=== PATIENT | female | born 1960 | race Caucasian/White ===

== ENCOUNTER 2017-01-31 07:20 | Day surgery (SDC) | payer BC ==
--- NOTE | 2017-01-29 22:35 | PREOPHP ---
DATE OF ADMISSION: 01/31/2017 This patient is coming on Sunday for a hysteroscopy, D and C, and endometrial polypectom y. HISTORY OF PRESENT ILLNESS: The patient, Kayla Hoskins, is a 56-year-old female 1, para 1. This patient had no living children. She had an intrapartum at 8 months of . Has pelvic pain, nonsexually active for years, vaginal dryness with burning sensation. No bladder issues with incontinence of urgency only, constipation, history of prediabetes and hot flashes, pers piration, history of back pain. PAST MEDICAL HISTORY: Unremarkable. ALLERGIES: SHE IS NOT ALLERGIC TO ANY MEDICATIONS. MEDICATIONS: 1. She is on Colace. 2. Vitamin D. 3. Tylenol. 4. Loratadine. FAMILY HISTORY: Brain and pancreatic cancer. PHYSICAL EXAMINATION: VITAL SIGNS: She is 5 feet 5 inches. She weighs 209 pounds. Blood pressure is 150/80. HEAD AND NECK: Normal with a right-sided thyroid enlargement. BREASTS: Soft, nontender. No masses. CHEST: Clear. HEART: Normal sinus rhythm. LUNGS: Clear. BACK: Normal. ABDOMEN: Soft, nontender. No masses. GENITALIA: There is a perianal mass growing, about 5 cm, with the possibility of a polyp that needs to be removed. Uterus with fibroids that are painful. RECTAL: Normal. EXTREMITIES: Normal. PLAN: This patient had a normal Pap smear and she had an ultrasound as well. Laboratory testing re vealed that she is in menopause. Her ultrasound revealed that she had prominent endometrium with en dometrial polyp and possible fibroids as well with simple bilateral ovarian cysts. So she was place d for a D and C hysteroscopy, excision of perianal mass, and polypectomy. She has been advised of t he possible risks and possible complications of the procedure with her alternatives and options. Wr itten information was provided. She had no more questions and agreed to go ahead with the procedure with full understanding and no more questions. Dictated By: FRANCOIS KENNEDY/NTS Conf#: [id number] DID#: [id number]
[2017-01-30 10:31] VITALS: BMI 36.7
[2017-01-31] VITALS (15 sets, daily range): BP systolic 113–132; BP diastolic 64–76; PULSE 62–85; RESP 12–42; Ht 172.7 cm; Wt 96.0 kg
[~2017-01-31] VITALS: Ht 172.7 cm; Wt 96.0 kg
[~2017-01-31 07:20] MED LIST: CONSTIPATION MED; SLEEP MEDICATION; STOMACH MEDICATION; VITAMINS
[2017-01-31] MEDS ORDERED: CEFAZOLIN 2 GM/50 ML (PMX) 50 ML IVPB ONE (07:30)
[2017-01-31] MEDS ORDERED: DOCU100C26 PO (07:57)
[2017-01-31] MEDS ORDERED: PANT40TA3 PO (07:58)
[2017-01-31] MEDS ORDERED: MELO-110 PO (07:58)
[2017-01-31] MEDS ORDERED: LORA10TA3 PO (07:59)
[2017-01-31] MEDS ORDERED: CHOL100062 PO (08:00)
[2017-01-31] MEDS ORDERED: BUSP10TA2 PO (08:00)
--- NOTE | 2017-01-31 09:51 | HPN ---
Date/Time of Note Date/Time of Note DATE: 01/31/17 TIME: 09:51 Interval H&P Admission Note Pt. seen H&P reviewed: No system changes FRANCOIS BUSBY MD January 31, 2017 09:51
[2017-01-31] MEDS ORDERED: FENTAnyl 50 MCG/ML VIAL ONE (10:04)
[2017-01-31] MEDS ORDERED: GLYCOPYRROLATE 0.4 MG INJ ONE (10:25)
[2017-01-31] MEDS ORDERED: PROPOFOL 40 ML ONE (10:25)
[2017-01-31] MEDS ORDERED: CEFAZOLIN 1 GM INJ ONE (10:25)
[2017-01-31] MEDS ORDERED: NEOSTIGMINE 3 MG/3 ML SYRINGE ONE (10:25)
[2017-01-31] MEDS ORDERED: ROCURONIUM 50 MG INJ ONE (10:25)
[2017-01-31] MEDS ORDERED: LIDOCAINE 2% (SDV) 5 ML INJ ONE (10:25)
[2017-01-31] MEDS ORDERED: SUCCINYLCHOLINE CHLORIDE 100 MG/5 ML SYG IV ONE (10:25)
[2017-01-31] MEDS ORDERED: HYDROmorphONE (0.2 MG/ML) 10ML SYG IV PRN ×3 (10:30)
[2017-01-31] MEDS ORDERED: FENTAnyl 50 MCG/ML VIAL IV PRN ×2 (10:30)
[2017-01-31] MEDS ORDERED: DIPHENHYDRAMINE 50 MG INJ IV PRN (10:30)
[2017-01-31] MEDS ORDERED: MEPERIDINE 25 MG INJ IV PRN (10:30)
[2017-01-31] MEDS ORDERED: METOCLOPRAMIDE 10 MG INJ IV PRN (10:30)
[2017-01-31] MEDS ORDERED: ONDANSETRON 4 MG INJ IV PRN (10:30)
[2017-01-31] MEDS ORDERED: PROVENTIL HFA 6.7GM INHALER ONE (10:59)
--- NOTE | 2017-01-31 11:02 | PD.PPDC ---
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
--- NOTE | 2017-01-31 11:08 | OPR ---
Date/Time of Note Date/Time of Note DATE: 01/31/17 TIME: 11:05 Operative Report Procedure Date: January 31, 2017 Preoperative Diagnosis PELVIC PAIN ENDOMETRIAL MASS, FIBROID VERSUS POLYP PREDIABETES PERIANAL MASS Postoperative Diagnosis SAME Operation Performed D&C HYSTEROSCOPIC PARTIAL ENDOMETRIAL MASS RESECTION Surgeon: FRANCOIS BUSBY MD Anesthesia: general Anesthesiologist: NAYA FLYNN Estimated Blood Loss: none Complications: None Disposition: PACU FRANCOIS BUSBY MD January 31, 2017 11:08
[2017-01-31] MEDS ORDERED: KETOROLAC 30 MG INJ IV PRN (11:30)
--- NOTE | 2017-01-31 12:38 | OPR ---
DATE OF OPERATION: 01/31/2017 PROCEDURE: D and C, hysteroscopic partial resection of endometrial mass. PREOPERATIVE DIAGNOSES: 1. Pelvic pain, endometrial mass, fibroids versus polyps. 2. Diabetes, perianal mass. POSTOPERATIVE DIAGNOSIS: 1. Pelvic pain, endometrial mass, fibroids versus polyps. 2. Diabetes, perianal mass. SURGEON: Francois Cali MD ANESTHESIA: General. DESCRIPTION OF PROCEDURE: Patient was given general anesthesia, placed in the lithotomy position. The perineal and vaginal area were prepped and draped, and confirmatory examination under anesthesia revealed that there was a perianal mass about 4 cm hanging next to the anus left side. Externally there is vaginal prolapse from the bladder to grade II to III, rectum II to III, and cervix nonprola psed with a fibroid uterus that is retroverted and about 8 weeks' size, mobile. The adnexa were non palpable. The vaginal speculum was applied. The cervix was held distally. The endocervical curett age was done for pathology. The uterus was sounded to a depth of 3 inches and the scope was placed in after dilatation of the cervix to a #7 to #8. The hysteroscope and water media was inserted insi de the uterus and the visualization of the cavity revealed that there were 2 large masses that were in the endometrium, possibly fibroids more like polyps, a little hard consistency, with a posterior fibroid that was also protruding up the endometrium. The trochlear machine was used and the resecti on was done partially of this mass which was hard and tissue of this mass was obtained. The decisio n was to go ahead with a vaginal hysterectomy since it was very hard tissue to resect. The patient did not have any bleeding. The procedure was finished by removing all the instruments and the patie nt tolerated the procedure well and intravenous antibiotics were given for prophylaxis. Blood loss was minimal. The urine was clear. Dictated By: FRANCOIS KENNEDY/STACIE Conf#: [id number] DID#: [id number]
[2017-01-31] MEDS ORDERED: ONDANSETRON 4 MG INJ IV STA (13:12)
[2017-01-31] MEDS ORDERED: HYDROmorphONE 1 MG/ML SYG IV STA (13:12)
--- NOTE | 2017-01-31 13:25 | RADRPT ---
Vent Rate: 93 bpm RR Interval: 0 msec [place] Interval: 152 msec QRS Duration: 78 msec QT Interval: 376 msec QTC Interval: 467 msec P-R-T [place]: 48 - 54 - 32 degrees Sinus rhythm with occasional premature ventricular complexes Otherwise normal ECG Electronically Signed By: Drew Cohn [id number]
== END 2017-01-31 14:34 | disposition home or self-care (01) ==
LOC: SDS 07:20
PROVIDERS: ATTEND Obstetrics & Gynecology
DX: N85.00 Endometrial hyperplasia, unspecified (principal); N84.0 Polyp of corpus uteri; I10 Essential (primary) hypertension; E66.9 Obesity, unspecified; Z68.32 Body mass index [BMI] 32.0-32.9, adult
CPT/HCPCS: 58563; 88305; 93005; J0690; J1170; J1885; J2175; J2405; J2710; J3010; J7999; Z7512; Z7610

== ENCOUNTER 2017-06-15 05:44 | Day surgery (SDC) | payer BC ==
[2017-06-14 15:00] VITALS: Ht 165.1 cm; Wt 97.2 kg
[~2017-06-15] VITALS: Ht 165.1 cm; Wt 97.2 kg
[~2017-06-15 05:44] MED LIST changes: +BUSP10TA2 PO; +CHOL100062 PO; -CONSTIPATION MED; +DOCU100C26 PO; +LORA10TA3 PO; +MELO-210 PO; +PANT40TA3 PO; -SLEEP MEDICATION; -STOMACH MEDICATION; -VITAMINS
[2017-06-15] MEDS ORDERED: CEFAZOLIN 2 GM/50 ML (PMX) 50 ML IVPB ONE (06:00)
[2017-06-15] MEDS ORDERED: SOD CHLORIDE 0.9% 1,000 ML IV SCH (06:00)
== END 2017-06-15 06:45 | disposition home or self-care (01) ==
LOC: SDS 05:44
PROVIDERS: ATTEND Surgery
DX: E07.9 Disorder of thyroid, unspecified (principal); Z53.09 Procedure and treatment not carried out because of other contraindication

== ENCOUNTER 2017-06-28 06:32 | Observation (INO) | payer BC ==
[~2017-06-28] VITALS: Ht 167.6 cm; Wt 97.0 kg
[2017-06-28] VITALS (22 sets, daily range): BP systolic 105–146; BP diastolic 61–81; PULSE 70–96; RESP 15–20; Ht 167.6 cm; Wt 97.0 kg
[2017-06-28] MEDS ORDERED: CEFAZOLIN 2 GM/50 ML (PMX) 50 ML IVPB ONE (07:00)
[2017-06-28] MEDS ORDERED: METOPROLOL 5 MG INJ ONE (07:00)
[2017-06-28] MEDS ORDERED: SOD CHLORIDE 0.9% 1,000 ML IV SCH (07:00)
[2017-06-28] MEDS ORDERED: NEOSTIGMINE 3 MG/3 ML SYRINGE ONE (08:20)
[2017-06-28] MEDS ORDERED: GLYCOPYRROLATE 0.4 MG INJ ONE (08:20)
[2017-06-28] MEDS ORDERED: ROCURONIUM 50 MG INJ ONE (08:20)
[2017-06-28] MEDS ORDERED: PROPOFOL 20 ML ONE (08:20)
[2017-06-28] MEDS ORDERED: FENTAnyl 50 MCG/ML VIAL ONE (08:20)
[2017-06-28] MEDS ORDERED: DEXAMETHASONE 4 MG/ML 1 ML INJ ONE (08:20)
[2017-06-28] MEDS ORDERED: MIDAZOLAM 1 MG/ML 2 ML INJ ONE (08:20)
[2017-06-28] MEDS ORDERED: CEFAZOLIN 1 GM INJ ONE (08:20)
[2017-06-28] MEDS ORDERED: ONDANSETRON 4 MG INJ ONE (08:20)
[2017-06-28] MEDS ORDERED: FENTAnyl 50 MCG/ML VIAL IV PRN ×2 (10:00)
[2017-06-28] MEDS ORDERED: OXYCODONE/ACETAMINOPHEN (5/325) TAB PO PRN ×2 (10:00)
[2017-06-28] MEDS ORDERED: TRIMETHOBENZAMIDE 100 MG/ML VIAL IM PRN (10:00)
[2017-06-28] MEDS ORDERED: LABETALOL HCL 20MG INJ IV PRN (10:00)
[2017-06-28] MEDS ORDERED: ONDANSETRON 4 MG INJ IV PRN (10:00)
[2017-06-28] MEDS ORDERED: MEPERIDINE 25 MG INJ IV PRN (10:00)
[2017-06-28] MEDS ORDERED: MIDAZOLAM 1 MG/ML 2 ML INJ IV PRN (10:00)
[2017-06-28] MEDS ORDERED: ALBUTEROL 0.083% (NEB) 2.5 MG/3 ML AMP HHN PRN (10:00)
[2017-06-28] MEDS ORDERED: hydrALAzine 20 MG INJ IV PRN (10:00)
[2017-06-28] MEDS ORDERED: IPRATROPIUM (NEB) 0.5 MG/2.5 ML AMP HHN PRN (10:00)
[2017-06-28] MEDS ORDERED: HYDROmorphONE (0.2 MG/ML) 10ML SYG IV PRN ×3 (10:00)
[2017-06-28] MEDS ORDERED: EPHEDrine SULFATE 50 MG/5 ML SYG IV PRN (10:00)
[2017-06-28] MEDS ORDERED: DIPHENHYDRAMINE 50 MG INJ IV PRN (10:00)
[2017-06-28] MEDS ORDERED: BUPIVACAINE 0.25% (MPF) 30 ML INJ ONE (10:30)
[2017-06-28] MEDS ORDERED: SUGAMMADEX SODIUM 200 MG/2 ML VIAL IV ONE (10:35)
[2017-06-28] MEDS ORDERED: BUPIVACAINE 0.25% (STERILE-PAK) 30 ML INJ INJ ONE (10:41)
[2017-06-28] MEDS ORDERED: HYDROCODONE/APAP (5/325) TAB PO PRN (11:00)
[2017-06-28] MEDS ORDERED: morphine 2 MG INJ IV PRN (11:00)
--- NOTE | 2017-06-28 11:09 | OPR ---
Date/Time of Note Date/Time of Note DATE: 06/28/17 TIME: 11:03 Operative Report Procedure Date: Jun 28, 2017 Preoperative Diagnosis thyroid nodule and follicular cell on FNA Postoperative Diagnosis same Operation/Procedure Performed 1. total thyroidectomy 2. localized adjacent tissue transfer with the use of skin flaps 16 sq cm defect 3. therapeutic injection of subcutaneous local anesthesia Surgeon see signature line Director Risk none Anesthesia Type: general Estimated Blood Loss: 10 - 50 ml's Transfusion none Specimen total thyroid surgical markings single short right superior pole single long right inferior pole double short left superior pole double long left inferior pole Grafts/Implants none Complications none Indications This is a 57-year-old female with an enlarging thyroid nodule with pressure and follicular cell on FNA. She requests surgical excision. Risks alternatives benefits and percent were discussed with patient. Patient expressed understanding consents to the operation. Procedure Description Patient taken to the OR and prepped and draped in usual sterile fashion. Surgical timeout was performed. IV antibiotics were given. Collar incision is made with a 15 blade. Dissection cautery was carried down to the platysma. Superior and inferior platysmal flaps are created. This was performed along a bloodless plane. The midline strap muscles were split and divided. Bony retractors were placed. Attention was then paid to the left thyroid. There appeared to be a very hardened and firm nodule encompassing the majority of the thyroid gland. The middle thyroid vein was divided with LigaSure. Further retraction and mobilization of the superior inferior pole were performed with blunt dissection and with handheld LigaSure. Careful attention was paid to the recurrent laryngeal nerve. The lateral region had a lot of inflammation and adhesions. Careful dissection was performed along the capsule of the thyroid to allow mobilization of the lateral contents. The left thyroid lobe was mobilized and medialized. The isthmus was bluntly dissected with hemostat from superiorly and inferiorly along the tracheal plane. Attention was then paid to the right thyroid lobe. There also appeared to be increased amount of inflammation. This middle thyroidal vein was ligated with had a LigaSure. The superior inferior poles were bluntly dissected out carefully. Careful dissection along the capsule was also performed with hand-held LigaSure. The right thyroid lobe was mobilized medially on taken off the trachea. Surgical markings were placed with a single short for right superior pole seen along the right inferior pole double short for left superior pole along the left inferior pole. Specimen was sent for frozen. The surgical site was irrigated with irrigation and Valsalva maneuver to 40 cm was performed. There is no evidence of any bleeding. Strap muscles were reapproximated. Due to large T tissue defect platysmal flaps were advanced with interrupted 3-0 Vicryl. Localized adjacent tissue transfer with use of skin flaps was performed. Multilayer closure with interrupted 3-0 Vicryl and running 4-0 Monocryl. Therapeutic subcutaneous local anesthesia was injected throughout the incision site. Dressings were applied. Razia DONNELLY Jun 28, 2017 11:09
[2017-06-28] MEDS: FENTAnyl 50 MCG/ML VIAL IV PRN ×2 (11:17→11:29)
[2017-06-28 12:14] LABS: BASOPHILS % 0.4 % (0.0-2.0); EOSINOPHILS % 0.4 % (0.0-7.0); HEMATOCRIT 44.2 % (37.0-47.0); HEMOGLOBIN 14.8 g/dl (12.0-16.0); LYMPHOCYTES # 1.4 10^3/ul (0.8-2.9); LYMPHOCYTES % 16.6 % (15.0-51.0); MEAN CORPUSCULAR HEMOGLOBIN 29.3 pg (29.0-33.0); MEAN CORPUSCULAR HGB CONC 33.5 g/dl (32.0-37.0); MEAN CORPUSCULAR VOLUME 87.5 fl (82.0-101.0); MONOCYTE # 0.1 10^3/ul (0.3-0.9); MONOCYTES % 1.6 % (0.0-11.0); NEUTROPHIL # 6.9 10^3/ul (1.6-7.5); NEUTROPHILS % 80.5 % (39.0-77.0); PLATELET COUNT 235 10^3/UL (140-415); RED BLOOD COUNT 5.05 10^6/ul (4.20-5.40); RED CELL DISTRIBUTION WIDTH 13.4 % (11.5-14.5); WHITE BLOOD COUNT 8.5 10^3/ul (4.8-10.8)
--- NOTE | 2017-06-28 12:14 | HP ---
DATE OF ADMISSION: 06/28/2017 CHIEF COMPLAINT AND HISTORY OF PRESENT ILLNESS: The patient is a 57-year-old female with a history of left thyroid nodule. The pathology came back positive for follicular lesion. The patient was re ferred to Dr. uRba Fortune from endocrine standpoint and was subsequently referred to Dr. Tran. Th e patient was brought into hospital today and underwent total thyroidectomy and subsequent skin flap . The patient is breathing comfortably. Denies any chest pain. Patient does have postoperative pa in, no vomiting. No reported abdominal pain. No reported shortness of breath. The patient denies any cough. No focal weakness. No reported recent fever or chills. No reported leg pain or leg ras ma. Patient was seen by Dr. Severino for preop cardiac clearance and was cleared. The patient's ech o revealed EF of 55%. REVIEW OF SYSTEMS: Rest of review of systems was unremarkable. PAST SURGICAL HISTORY: The patient is status post D and C and hysteroscopic partial resection of en dometrial mass by Dr. Tanika Cali. ALLERGIES: NONE. SOCIAL HISTORY: No smoking, no alcohol. FAMILY HISTORY: Noncontributory. PHYSICAL EXAMINATION: GENERAL: The patient is conscious, awake, alert. VITAL SIGNS: Temperature 98.6, pulse 82, respirations 19, blood pressure 137/61, O2 sat 95% on 2 li ters nasal cannula. HEENT: No eye discharge or redness. Extraocular movements intact. Nose and ears normal. Orophary nx examination was deferred. NECK: Incision without any active bleeding. CHEST: Fairly clear. CARDIOVASCULAR: S1, S2 normal. No murmur. ABDOMEN: Soft, nondistended, nontender. EXTREMITIES: No leg edema. NEUROLOGIC: The patient is awake, follows simple commands and moves all extremities. LABORATORY DATA: Urine test negative. Glucose 95, BUN 11, creatinine 0.5, sodium 141, po tassium 4.3. Coagulation profile normal. TSH 2.0, AST 50, ALT is 93. WBC in 8.3, hemoglobin 15.3, platelets 437. IMPRESSION: Thyroid nodule with positive follicular cells on FNAC, status post total thyroidectomy. PLAN: Patient admitted on medical floor. Patient will be started on clear liquid diet, which will be advanced as tolerated. The patient will also be continued on IV fluids, Tylenol, Percocet and IV morphine for pain control. We will do followup labs in the morning. I will use SCD for DVT prophy laxis. Dictated By: MELISSA TAYLOR/STACIE Conf#: [id number] DID#: [id number]
[2017-06-28 12:31] LABS: ALBUMIN 4.2 g/dl (3.3-4.9); ALBUMIN/GLOBULIN RATIO 1.27; BILIRUBIN,INDIRECT 0.4 mg/dl (0-1.1); BILIRUBIN,TOTAL 0.4 mg/dl (0.2-1.3); TOTAL PROTEIN 7.5 g/dl (6.1-8.1)
[2017-06-28 12:36] LABS: CALCIUM 8.5 mg/dl (8.4-10.2); CREATININE 0.63 mg/dl (0.44-1.00); POTASSIUM 4.7 mmol/L (3.5-5.1)
[2017-06-28] MEDS: SOD CHLORIDE 0.9% 1,000 ML IV SCH ×2 (14:31→20:20)
[2017-06-28] MEDS: CEFAZOLIN 2 GM/50 ML (PMX) 50 ML IVPB SCH ×2 (14:37→18:25)
[2017-06-28] MEDS: ONDANSETRON 4 MG INJ IV PRN (15:14)
[2017-06-28] MEDS: ACETAMINOPHEN 500 MG TAB PO PRN (18:25)
[2017-06-28] MEDS: HYDROmorphONE 0.5 MG/0.5 ML SYG IV PRN (21:13)
[2017-06-29] MEDS: SOD CHLORIDE 0.9% 1,000 ML IV SCH ×2 (00:20→12:38)
[2017-06-29 01:50] VITALS: BP 95/56; RESP 16
[2017-06-29] MEDS: CEFAZOLIN 2 GM/50 ML (PMX) 50 ML IVPB SCH (02:40)
[2017-06-29] MEDS: ACETAMINOPHEN 500 MG TAB PO PRN ×2 (02:44→17:42)
[2017-06-29 06:10] LABS: BASOPHILS % 0.1 % (0.0-2.0); EOSINOPHILS % 0.1 % (0.0-7.0); HEMATOCRIT 43.5 % (37.0-47.0); HEMOGLOBIN 14.2 g/dl (12.0-16.0); LYMPHOCYTES % 14.3 % (15.0-51.0); MEAN CORPUSCULAR HEMOGLOBIN 28.6 pg (29.0-33.0); MEAN CORPUSCULAR HGB CONC 32.6 g/dl (32.0-37.0); MEAN CORPUSCULAR VOLUME 87.5 fl (82.0-101.0); MEAN PLATELET VOLUME 11.6 fl (7.4-10.4); MONOCYTES % 7.1 % (0.0-11.0); NEUTROPHIL # 10.8 10^3/ul (1.6-7.5); NEUTROPHILS % 77.7 % (39.0-77.0); PLATELET COUNT 247 10^3/UL (140-415); RED BLOOD COUNT 4.97 10^6/ul (4.20-5.40); RED CELL DISTRIBUTION WIDTH 13.4 % (11.5-14.5); WHITE BLOOD COUNT 13.9 10^3/ul (4.8-10.8)
[2017-06-29 07:04] LABS: ALBUMIN 3.9 g/dl (3.3-4.9); ALBUMIN/GLOBULIN RATIO 1.3; BILIRUBIN,INDIRECT 0.5 mg/dl (0-1.1); BILIRUBIN,TOTAL 0.5 mg/dl (0.2-1.3); CALCIUM 8.6 mg/dl (8.4-10.2); CREATININE 0.58 mg/dl (0.44-1.00); TOTAL PROTEIN 6.9 g/dl (6.1-8.1)
[2017-06-29 08:53] VITALS: BP 110/60; RESP 18
[2017-06-29] MEDS: ONDANSETRON 4 MG INJ IV PRN (10:01)
[2017-06-29] MEDS: HYDROmorphONE 0.5 MG/0.5 ML SYG IV PRN (10:03)
--- NOTE | 2017-06-29 13:46 | PN ---
Date/Time of Note Date/Time of Note DATE: 06/29/17 TIME: 13:45 Assessment/Plan VTE Prophylaxis VTE Prophylaxis Intervention: SCD's Lines/Catheters IV Catheter Type (from Nrs): Peripheral IV Urinary Cath still in place: No Assessment/Plan Chief Complaint/Hosp Course s/p total thyroidectomy Problems: Assessment/Plan doing well dc home and f/u in 2 weeks in clinic Subjective 24 Hr Interval Summary Free Text/Dictation doing well, no issues, tolerating diet Exam/Review of Systems Vital Signs Vitals Vital Signs Date Time Temp Pulse Resp B/P Pulse Ox O2 Delivery O2 Flow Rate FiO2 06/29/17 08:53 98.2 85 18 110/60 96 06/28/17 17:15 Nasal Cannula 2.0 Intake and Output 06/28/17 06/28/17 06/29/17 15:00 23:00 07:00 Intake Total 1400 ml 400 ml 2000 ml Output Total 30 ml 800 ml Balance 1370 ml 400 ml 1200 ml Exam incision c/d/i Results Result Diagram: 06/29/17 0459 06/29/17 0459 Results 24 hrs Laboratory Tests Test 06/29/17 04:59 06/29/17 06:13 White Blood Count 13.9 #H Red Blood Count 4.97 Hemoglobin 14.2 Hematocrit 43.5 Mean Corpuscular Volume 87.5 Mean Corpuscular Hemoglobin 28.6 L Mean Corpuscular Hemoglobin Concent 32.6 Red Cell Distribution Width 13.4 Platelet Count 247 Mean Platelet Volume 11.6 H Neutrophils % 77.7 H Lymphocytes % 14.3 L Monocytes % 7.1 Eosinophils % 0.1 Basophils % 0.1 Nucleated Red Blood Cells % 0.0 Neutrophils # 10.8 H Lymphocytes # 2.0 Monocytes # 1.0 H Eosinophils # 0.0 Basophils # 0.0 Nucleated Red Blood Cells # 0.0 Sodium Level 142 Potassium Level 4.0 Chloride Level 106 Carbon Dioxide Level 26 Anion Gap 14 Blood Urea Nitrogen 11 Creatinine 0.58 Glucose Level 110 # Calcium Level 8.6 Total Bilirubin 0.5 Direct Bilirubin 0.00 Indirect Bilirubin 0.5 Aspartate Amino Transf (AST/SGOT) 37 Alanine Aminotransferase (ALT/SGPT) 66 Alkaline Phosphatase 80 Total Protein 6.9 Albumin 3.9 Globulin 3.00 Albumin/Globulin Ratio 1.30 Lab Scanned Report LAB Medications Medications Current Medications Acetaminophen/ Hydrocodone Bitart 1 tab 1 tab Q6H PRN PO PAIN LEVEL 6-10; Start 06/28/17 at 11:00 Sodium Chloride (NS) 1,000 ml @ 100 mls/hr Q10H IV Last administered on 12:38; Admin Dose 100 MLS/HR; Start 06/28/17 at 11:00 Acetaminophen (Tylenol Tab) 500 mg Q4H PRN PO PAIN AND OR ELEVATED TEMP Last administered on 06/29/17 02:44; Admin Dose 500 MG; Start 06/28/17 at 12:00 Hydromorphone HCl (Dilaudid) 0.5 mg Q3H PRN IV PAIN Last administered on 10:03; Admin Dose 0.5 MG; Start 06/28/17 at 15:30 Ondansetron HCl (Zofran Inj) 4 mg Q6H PRN IV NAUSEA AND/OR VOMITING Last administered on 06/29/17 10:01; Admin Dose 4 MG; Start 06/28/17 at 15:30 Razia DONNELLY Jun 29, 2017 13:46
[2017-06-29 14:46] VITALS: BP 117/71; RESP 18
[2017-06-29 19:30] VITALS: BP 124/69; RESP 18
[2017-06-29] MEDS ORDERED: HYDR-3498 PO (19:32)
--- NOTE | 2017-07-01 16:18 | DS ---
Date/Time of Note Date/Time of Note DATE: 07/01/17 TIME: 16:17 Discharge Summary Admission/Discharge Info Admit Date/Time Jun 28, 2017 at 11:22 Discharge Date/Time Jun 29, 2017 at 20:47 Patient Condition: Stable Hx of Present Illness The patient is a 57-year-old female with a history of left thyroid nodule. The pathology came back positive for follicular lesion. The patient was referred to Dr. Ruba Fortune from endocrine standpoint and was subsequently referred to Dr. Tran. The patient was brought into hospital today and underwent total thyroidectomy and subsequent skin flap. The patient is breathing comfortably. Denies any chest pain. Patient does have postoperative pain, no vomiting. No reported abdominal pain. No reported shortness of breath. The patient denies any cough. No focal weakness. No reported recent fever or chills. No reported leg pain or leg edema. Patient was seen by Dr. Severino for preop cardiac clearance and was cleared. The patient's echo revealed EF of 55%. Hospital Course - Thyroid nodule with positive follicular cells on FNAC, status post total thyroidectomy. Home Meds Active Scripts Hydrocodone Bit-Acetaminophen (Hydrocodone Bit-APAP) 5-325MG Tablet, 1 TAB PO Q6H Y for PAIN LEVEL 6-10, #50 TAB Prov:MICHAEL GONSALEZ 06/29/17 Reported Medications Cholecalciferol* (Vitamin D3*) 1,000 Unit Tablet, 1000 UNIT PO DAILY, TAB 01/31/17 Loratadine* (Loratadine*) 10 Mg Tablet, 10 MG PO QHS, #30 TAB 01/31/17 Meloxicam* (Mobic*) 15 Mg Tablet, 15 MG PO DAILY Y for PAIN, #30 TAB 01/31/17 Docusate Sodium* (Doc-Q-Lace*) 100 Mg Capsule, 100 MG PO BID Y for CONSTIPATION , CAP 01/31/17 Discontinued Reported Medications Buspirone Hcl* (Buspirone Hcl*) 10 Mg Tab, 10 MG PO QAM, TAB 01/31/17 Pantoprazole* (Protonix*) 40 Mg Tablet., 40 MG PO QHS, TAB 01/31/17 Follow-up Plan f/up with Dr Tran in 1 week, f/up with PMD next week. Primary Care Provider Not On Staff Doctor Time spent on discharge: > 30 minutes MICHAEL GONSALEZ Jul 01, 2017 16:18
== END 2017-06-29 20:47 | disposition home or self-care (01) ==
LOC: SDS 06:32 → REC 11:22 → PP2 14:17
PROVIDERS: ADMIT Internal Medicine; ATTEND Surgery
DX: C73 Malignant neoplasm of thyroid gland (principal); E06.3 Autoimmune thyroiditis; E66.9 Obesity, unspecified; Z68.34 Body mass index [BMI] 34.0-34.9, adult
CPT/HCPCS: 60240; 80053; 84703; 85025; 88307; 88321; 96361; 96365; 96375; J0690; J1100; J2250; J2270; J2405; J3010; J7030; Z7500; Z7512; Z7610; 99217; G0378; J1170; J2710

== ENCOUNTER 2018-05-23 22:14 | Emergency (ER) | END 2018-05-24 01:50 | disposition home or self-care (01) ==

== ENCOUNTER 2019-02-04 05:25 | Inpatient (IN) | payer BC ==
--- NOTE | 2019-02-03 22:33 | PREOPHP ---
DATE OF ADMISSION: 02/04/2019 HISTORY OF PRESENT ILLNESS: This is a 59-year-old female, 1, para 1 with no living children and no . This patient had a loss at 8 months and she had the delivery of a stillbo rn. The patient had this baby as a home delivery. The patient had been seeing me since 2017, at [facility] time I did a resection of an endometriomas and there was a polyp with a history of fibroids. She also had history of bilateral complex ovarian masses and an old fibroid uterus that were stable with normal followup on CA-125. The patient was found also to have an enlargement of the left thyroid gla nd, that she had the partial thyroidectomy for and it turned out to be malignant. The patient had be en followed by her physician in the clinic. She has been complaining of back pain, lower abdominal p ain. Her complex masses have not gotten better. The left side had an enlarging left ovarian complex mass with bilateral ovarian endometriomas and fibroid uterus for which a TAHBSO was advised to avoid future problems and to control her pelvic pain and back pain. PAST MEDICAL HISTORY: Otherwise is for her D and C, her stillborn, and the partial thyroidectomy. REVIEW OF SYSTEMS: Otherwise negative for cardiovascular disease, negative for lung disease. She penny d a history of pneumonia. Negative for GI disease, endocrine disease, neurological or orthopedic dis ease. ALLERGIES: SHE DOES NOT HAVE ANY ALLERGIES. MEDICATIONS: She is on levothyroxine and she is on vitamins. The patient is scheduled for TAHBSO. FAMILY HISTORY: Hypertension, brain cancer, pancreatic cancer. SOCIAL HISTORY: She does not drink or smoke and no history of drugs. PHYSICAL EXAMINATION: GENERAL APPEARANCE: Good. VITAL SIGNS: Blood pressure 140/80, pulse is 80, temperature is afebrile. She weighs 215 pounds. S he is 5 feet 5 inches. HEAD AND NECK: Normal. The right side of the thyroid is present. BREASTS: Soft, nontender, no masses. CHEST: Clear. HEART: Normal sinus rhythm. BACK: Normal. ABDOMEN: Soft, nontender, no masses. GENITALIA: With normal external genitalia. PELVIC: Cervix is normal. Uterus with fibroids, painful on mobilization. Adnexa with fullness in b oth adnexal area where at least a 5 cm complex adnexal mass was found. She had an ultrasound last ye ar that revealed that the right ovary had 2 cysts with 4.8 complex mass, and the uterus was normal. Left ovary with a 6.2 cm cyst as well. The uterus was with 3 little fibroids. RECTAL: Normal. EXTREMITIES: Normal. DIAGNOSES: 1. Chronic pelvic and back pain. 2. Bilateral complex ovarian masses with endometriomas, fibroid uterus, and menopause. PLAN: She is undergoing a TAHBSO. She has been advised of the possible risks and possible complicat ions of the procedure with her alternatives and options. Written information was provided. She had no more questions and agreed to go ahead with the procedure with full understanding and no more quest ions. Dictated By: FRANCOIS KENNEDY/STACIE Conf#: [id number] DID#: [id number]
[2019-02-04] VITALS (26 sets, daily range): BP systolic 108–137; BP diastolic 56–87; PULSE 71–96; RESP 12–23; Ht 167.6 cm; Wt 96.2 kg
[~2019-02-04] VITALS: Ht 167.6 cm; Wt 96.2 kg
[~2019-02-04 05:25] MED LIST changes: -BUSP10TA2 PO; +CYCL10TA7 PO; +DOCU-221 PO; -DOCU100C26 PO; +HYDR-3601 PO; +HYDR-3980 PO; +IBUP-1542 PO; -MELO-210 PO; +MELO15TA30 PO; -PANT40TA3 PO
[2019-02-04] MEDS ORDERED: CEFAZOLIN 2 GM/50 ML (PMX) 50 ML IVPB ONE (06:00)
[2019-02-04] MEDS ORDERED: DESFLURANE 15 MIN ONE (07:00)
[2019-02-04] MEDS ORDERED: MELO15TA30 PO (07:12)
[2019-02-04] MEDS ORDERED: LEVO200T45 PO (07:13)
[2019-02-04] MEDS ORDERED: ERGO2000 PO (07:14)
[2019-02-04] MEDS ORDERED: LORA10TA3 PO (07:14)
[2019-02-04] MEDS ORDERED: OMEP20CA16 PO (07:15)
[2019-02-04] MEDS ORDERED: ROCURONIUM 50 MG INJ ONE (07:27)
[2019-02-04] MEDS ORDERED: GLYCOPYRROLATE 0.4 MG INJ ONE (07:27)
[2019-02-04] MEDS ORDERED: NEOSTIGMINE 3 MG/3 ML SYRINGE ONE (07:27)
[2019-02-04] MEDS ORDERED: PROPOFOL 40 ML ONE (07:27)
[2019-02-04] MEDS ORDERED: CEFAZOLIN 1 GM INJ ONE (07:27)
[2019-02-04] MEDS ORDERED: FENTAnyl 50 MCG/ML VIAL ONE ×2 (07:28)
[2019-02-04] MEDS ORDERED: DEXAMETHASONE 4 MG/ML 5 ML INJ ONE (07:28)
[2019-02-04] MEDS ORDERED: MIDAZOLAM 1 MG/ML 2 ML INJ ONE ×3 (07:28→07:57)
[2019-02-04] MEDS ORDERED: ONDANSETRON 4 MG INJ ONE (07:28)
[2019-02-04] MEDS ORDERED: morphine SULFATE/PF (10 MG/10 ML) INJ ONE (07:34)
--- NOTE | 2019-02-04 07:36 | PREAC ---
Date/Time of Note Date/Time of Note DATE: 02/04/19 TIME: 07:34 Anesthesia Eval and Record Evaluation Time Pre-Procedure Interview DATE: 02/04/19 TIME: 07:34 Age 59 Sex female NPO: 8 hrs Preoperative diagnosis BILATERAL COMPLEX OVARIAN MASS, FIBROID UTERUS Planned procedure EUNICE, BSO Past Medical History Past Medical History: Includes Endo: Hypothyroid GI: Obesity Surgery & Anesthesia Issues No known issue Meds Anticoagulation: No Beta Khloe within 24 hr: No Reason Beta Khloe not given: Pt. not on B-Khloe Reported Medications Omeprazole* (Omeprazole*) 20 Mg Capsule.dr, 20 MG PO DAILY, #30 CAP 02/04/19 Loratadine* (Loratadine*) 10 Mg Tablet, 10 MG PO DAILY, #30 TAB 02/04/19 Ergocalciferol (Vitamin D2) (VITAMIN D2) 2,000 Unit Tablet, 2000 UNIT PO DAILY, TAB 02/04/19 Levothyroxine Sodium* (Levoxyl*) 200 Mcg Tablet, 200 MCG PO BEFORE BREAKFAST, #30 TAB 02/04/19 Meloxicam* (Mobic*) 15 Mg Tablet, 15 MG PO DAILY, #30 TAB 02/04/19 Discontinued Reported Medications Cholecalciferol* (Vitamin D3*) 1,000 Unit Tablet, 1000 UNIT PO DAILY, TAB 01/31/17 Loratadine* (Loratadine*) 10 Mg Tablet, 10 MG PO QHS, #30 TAB 01/31/17 Meloxicam* (Mobic*) 15 Mg Tablet, 15 MG PO DAILY PRN for PAIN, #30 TAB 01/31/17 Docusate Sodium* (Doc-Q-Lace*) 100 Mg Capsule, 100 MG PO BID PRN for CONSTIPATION, CAP 01/31/17 Discontinued Scripts Ibuprofen* (Motrin*) 600 Mg Tab, 600 MG PO Q6H PRN for PAIN AND OR ELEVATED TEMP, #30 TAB Prov:RENE JOHNSON HEALTH INFORMATION ASSISTANT 05/24/18 Cyclobenzaprine Hcl* (Cyclobenzaprine Hcl*) 10 Mg Tablet, 10 MG PO TID, #15 TAB Prov:RENE JOHNSON HEALTH INFORMATION ASSISTANT 05/24/18 Hydrocodone/Acetaminophen (Logan 10-325 Tablet) 1 Each Tablet, 1 TAB PO Q6H PRN for SEVERE PAIN LEVEL 7-10, #7 TAB Prov:RENE JOHNSON DELGADILLO TFrancesca HEALTH INFORMATION ASSISTANT 05/24/18 Hydrocodone Bit-Acetaminophen (Hydrocodone Bit-APAP) 5-325MG Tablet, 1 TAB PO Q6H PRN for PAIN LEVEL 6-10, #50 TAB Prov:MICHAEL GONSALEZ 06/29/17 Meds reviewed: Yes Allergies Coded Allergies: No Known Allergy (Unverified , 02/04/19) Allergies Reviewed: Yes Labs/Studies Labs Reviewed: Reviewed by anesthesiologist Blood Bank Test 02/04/19 05:56 02/04/19 06:09 Blood Product Summary Counts Blood Type O POSITIVE test: N/A Studies: ECG (SR), CXR (NAPD) Pre-procedure Exam Last vitals Vital Signs Date Temp Pulse Resp B/P (MAP) Pulse Ox O2 O2 Flow FiO2 Time Delivery Rate 02/04/19 98.5 88 18 137/87 97 Room Air 05:58 (104) Airway: Adequate mouth opening, Adequate thyromental dist Mallampati: Mallampati II Teeth: Normal Lung: Normal Heart: Normal ASA Physical Status ASA physical status: 2 Emergency: None Planned Anesthetic General/MAC: ETT Neuraxial: Spinal Planned Pain Management Sub-arachniod narcotics, Parenteral pain med Pre-operative Attestations Prior to commencing anesthesia and surgery, the patient was re-evaluated, there was verification of: *The patient's identity *The results of appropriate recent lab work and preoperative vital signs *The above evaluation not changing prior to induction *Anesthetic plan, risk benefits, alternative and complications discussed with patient/family; questions answered; patient/family understands, accepts and wishes to proceed. Melvin Wu M.D. February 04, 2019 07:36
[2019-02-04] MEDS ORDERED: LABETALOL HCL 20MG INJ IV PRN (08:30)
[2019-02-04] MEDS ORDERED: IPRATROPIUM (NEB) 0.5 MG/2.5 ML AMP HHN PRN (08:30)
[2019-02-04] MEDS ORDERED: hydrALAzine 20 MG INJ IV PRN (08:30)
[2019-02-04] MEDS ORDERED: NALBUPHINE HCL (10 MG/1 ML) INJ IV PRN (08:30)
[2019-02-04] MEDS ORDERED: FENTAnyl 50 MCG/ML VIAL IV PRN ×3 (08:30)
[2019-02-04] MEDS ORDERED: HYDROmorphONE 0.5 MG/0.5 ML SYG IV PRN ×2 (08:30)
[2019-02-04] MEDS ORDERED: NALOXONE (0.4 MG/ML) INJ IV PRN (08:30)
[2019-02-04] MEDS ORDERED: ONDANSETRON 4 MG INJ IV PRN ×2 (08:30)
[2019-02-04] MEDS ORDERED: ZOLPIDEM 5 MG TAB PO PRN ×2 (08:30→21:00)
[2019-02-04] MEDS ORDERED: MEPERIDINE 25 MG INJ IV PRN (08:30)
[2019-02-04] MEDS ORDERED: DIPHENHYDRAMINE 50 MG INJ IV PRN ×2 (08:30)
[2019-02-04] MEDS ORDERED: TRIMETHOBENZAMIDE 100 MG/ML VIAL IM PRN ×2 (08:30)
[2019-02-04] MEDS ORDERED: KETOROLAC 30 MG INJ IV PRN (08:30)
[2019-02-04] MEDS ORDERED: HYDROmorphONE 1 MG/5 ML IV SYRINGE IV PRN ×3 (08:30)
[2019-02-04] MEDS ORDERED: EPHEDrine 25 MG/5 ML SYG IV PRN (08:30)
[2019-02-04] MEDS ORDERED: OXYCODONE/ACETAMINOPHEN (5/325) TAB PO PRN ×2 (08:30)
[2019-02-04] MEDS ORDERED: ALBUTEROL 0.083% (NEB) 2.5 MG/3 ML AMP HHN PRN (08:30)
[2019-02-04] MEDS ORDERED: MIDAZOLAM 1 MG/ML 2 ML INJ IV PRN (08:30)
--- NOTE | 2019-02-04 10:27 | PAC ---
Date/Time of Note Date/Time of Note DATE: 02/04/19 TIME: 10:27 Post-Anesthesia Notes Post-Anesthesia Note Last documented vital signs Vital Signs Date Temp Pulse Resp B/P (MAP) Pulse Ox O2 O2 Flow FiO2 Time Delivery Rate 02/04/19 98.5 88 18 137/87 97 Room Air 05:58 (104) Activity: WNL Respiratory function: WNL Cardiovascular function: WNL Mental status: Baseline Pain reasonably controlled: Yes Hydration appropriate: Yes Nausea/Vomiting absent: Yes Melvin Wu M.D. February 04, 2019 10:27
[2019-02-04] MEDS ORDERED: ONDANSETRON INJ 6 MG in DEXTROSE 5% 50 ML IVPB PRN (10:30)
[2019-02-04] MEDS ORDERED: HYDROCODONE/APAP (5/325) TAB PO PRN (10:30)
[2019-02-04] MEDS ORDERED: DIPHENHYDRAMINE 50 MG CAP PO PRN (10:30)
--- NOTE | 2019-02-04 10:35 | SIPON ---
Date/Time of Note Date/Time of Note DATE: 02/04/19 TIME: 10:32 Operative Report Preoperative Diagnosis Intractable chronic pelvic pain and back pain Bilateral large complex adnexal masses Old endometriomas Fibroid uterus Menopause Postoperative Diagnosis Same plus extensive pelvic adhesions Possible old tubo-ovarian abscesses Operation/Procedure Performed EUNICE/BSO lysis of extensive adhesions Surgeon see signature line transition assistant DR MARINO Anesthesia: general Estimated blood loss: 100 - 150 ml's Transfusion Required none Specimen Uterus ,tubes and ovaries and cervix Grafts/Implants none Complications none FRANCOIS BUSBY MD February 04, 2019 10:35
[2019-02-04] MEDS: KETOROLAC 30 MG INJ IV SCH ×3 (11:32→21:56)
[2019-02-04] MEDS: LACTATED RINGER'S 1,000 ML IV SCH ×2 (11:33→15:46)
[2019-02-04] MEDS: METOCLOPRAMIDE 10 MG TAB PO SCH ×3 (12:00→23:48)
[2019-02-04] MEDS ORDERED: CEFAZOLIN 1 GM/50 ML (PMX) 50 ML IVPB SCH (14:00)
--- NOTE | 2019-02-04 15:09 | OPR ---
DATE OF OPERATION: 02/04/2019 PROCEDURE: Total abdominal hysterectomy, bilateral salpingo-oophorectomy, lysis of extensive adhesio ns. SURGEON: Francois Cali MD LOADER MAGAZINE GRINDER: José Luis Gaytan MD ANESTHESIOLOGIST: Melvin Wu MD ANESTHESIA: General and Duramorph. COMPLICATIONS: None. PROCEDURE IN DETAILS: The patient was given general anesthesia and Duramorph anesthesia, placed in t he supine position and a Canales catheter was placed in the bladder. The abdomen was prepped and drape d. A transverse incision was made suprapubically over the midline for about 15 cm in length. The ab dominal cavity was reached and the self-retaining retractor was placed and few laps were placed to ho ld on the bowel up. The visualization of the pelvis revealed that the uterus has small fibroids and the uterus was adherent to the large adnexal masses mainly on the left side and piece of the sigmoid colon as well. The lysis of adhesions to the bowel and to the adnexal area was done digitally with Herlinda castle and the LigaSure was used for the round ligaments in both sides and the ovarian ligament an d cornual end of the tube. The bladder flap was made and skeletonization of both uterine arteries wa s done and the LigaSure was again used for both uterine arteries in both sides of the uterus. At thi s time, the cardinal ligaments and uterosacral ligaments were clamped with straight Kochers and the i ncision was done and sutured with #1 Vicryl popoff sutures. The stitches to the adnexal area to the cardinal ligament area were held. At this time, the decision was to remove the corpus of the uterus to be able to have visualization since both adnexa were very large with large ovarian masses involvin g also the tubes that appeared to have hydrosalpinx from possible old tubo-ovarian abscesses. There were signs of implants of endometriosis as well. First, the right tube and ovary were removed with t he LigaSure instrument taking care of the adhesions on that area and also tracking down the ureter to make sure the infundibulopelvic ligament was burned and cut and the right tube and ovary were remove d first. Then the left side was dehisced from the adhesion on the back and on the sides and from the bowel and infundibulopelvic ligament was clamped, cut and tied with #1 Vicryl and also the LigaSure was used for the areas that were bleeding. At this time, both tubes and ovaries and the corpus of th e uterus were handed over and we went for the base of cervix that was ____ by using clamps to the ___ _ cardinal ligaments and the uterosacral ligaments. The vaginal cuff was entered posteriorly and the stump of the cervix was removed. The vaginal cuff was closed with interrupted sutures with #1 Vicry l and hemostasis was achieved and also the cavity was looked under warm water and we saw no active bl eeding. At this point, both ureters were tracked. They both appear to be far from our incisional ar ea with good peristalsis. The abdominal cavity was cleaned out. The laps were removed. The abdomen was closed after applying Surgicel in both adnexal areas and the peritoneum was closed with #1 and 0 Vicryl continuously, 0 PDS looped suture to the fascia, 2-0 Vicryl for the subcutaneous tissue, 3-0 Monocryl subcuticular to the skin, Dermabond and Steri-Strips. The patient tolerated the procedure w ell and left the OR awake and stable. Sponge counts and instrument counts were correct. Intravenous antibiotics were given for prophylaxis. Blood loss was about less than 150 mL and the urine was carlo ar at the end of the procedure. Dictated By: FRANCOIS KENNEDY/STACIE Conf#: [id number] DID#: [id number]
[2019-02-04] MEDS: CEFAZOLIN 1 GM/50 ML (PMX) 50 ML IVPB SCH ×2 (15:46→21:56)
[2019-02-04] MEDS: ENOXAPARIN 30 MG/0.3 ML SYG SC SCH (21:02)
[2019-02-05] MEDS: LACTATED RINGER'S 1,000 ML IV SCH ×2 (01:39→10:02)
[2019-02-05 04:00] VITALS: BP 94/52; PULSE 72; RESP 18
[2019-02-05] MEDS: KETOROLAC 30 MG INJ IV SCH ×4 (04:31→22:23)
[2019-02-05] MEDS: CEFAZOLIN 1 GM/50 ML (PMX) 50 ML IVPB SCH (06:07)
[2019-02-05] MEDS: METOCLOPRAMIDE 10 MG TAB PO SCH ×4 (06:08→23:57)
[2019-02-05] MEDS: LEVOTHYROXINE 100 MCG TAB PO SCH (06:08)
[2019-02-05] MEDS: PANTOPRAZOLE (EC) 40 MG TAB PO SCH (06:08)
[2019-02-05 07:34] VITALS: BP 101/55; PULSE 74; RESP 18
[2019-02-05] MEDS ORDERED: NON-FORMULARY/PATIENT OWN MED (Omeprazole* 20 MG) PO SCH (09:00)
--- NOTE | 2019-02-05 09:01 | RADRPT ---
Vent Rate: 76 bpm RR Interval: 788 msec LA Interval: 129 msec QRS Duration: 79 msec QT Interval: 397 msec QTC Interval: 447 msec P-R-T Williams: 42 - 51 - 40 degrees Sinus rhythm...normal P axis, V-rate 50- 99 Electronically Signed By: Rick Griffin
[2019-02-05] MEDS: LORATADINE 10 MG TAB PO SCH (09:53)
[2019-02-05] MEDS: ENOXAPARIN 30 MG/0.3 ML SYG SC SCH ×2 (09:53→21:13)
--- NOTE | 2019-02-05 10:12 | PN ---
Date/Time of Note Date/Time of Note DATE: 02/05/19 TIME: 10:10 Assessment/Plan Lines/Catheters IV Catheter Type (from Nrsg): Peripheral IV Canales in Place (from Nrsg): Yes Subjective 24 Hr Interval Summary First day post hysterectomy. Afebrile, in pain Vitals are stable Incision is dry Abdomen soft, tender Bowel sounds are present. Patient was explained about surgery and was advised to move around Feeding: advancing diet Pain Control: mild Detailed Summary Eyes: no complaints ENT: no complaints Respiratory: no complaints Cardiovascular: no complaints Gastrointestinal: no complaints Genitourinary: no complaints Musculoskeletal: no complaints Skin: no complaints Neurologic: no complaints Endocrine: no complaints Lymphatic: no complaints Psychological: no complaints, nl mood/affect Immunologic: no complaints Exam/Review of Systems Vital Signs Vitals Vital Signs Date Temp Pulse Resp B/P (MAP) Pulse Ox O2 O2 Flow FiO2 Time Delivery Rate 02/05/19 98.0 74 18 101/55 95 07:34 (70) 02/05/19 Nasal 2.0 04:00 Cannula Intake and Output 02/04/19 02/04/19 02/05/19 1515:00 23:00 07:00 IntakeIntake Total 3300 ml 1878 ml 1850 ml OutputOutput Total 400 ml 800 ml 1200 ml BalanceBalance 2900 ml 1078 ml 650 ml Exam Constitutional: alert, oriented, well developed Psych: no complaints, nl mood/affect Head: normocephalic, atraumatic Eyes: nl conjunctiva, EOMI, nl lids, nl sclera ENMT: nl external ears & nose, nl lips & teeth, nl nasal mucosa & septum, mucosa pink and moist Neck: supple, non-tender Respiratory: clear to auscultation, normal air movement Cardiovascular: regular rate and rhythm, nl pulses Gastrointestinal: soft, nl liver, spleen, non-tender Musculoskeletal: nl extremities to inspection, nl gait and stance Extremities: normal pulses Neurological: 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
[2019-02-05] MEDS: CEPHALEXIN 500 MG CAP PO SCH ×3 (13:50→23:57)
[2019-02-05 14:35] VITALS: BP 92/53; PULSE 90; RESP 18
[2019-02-05 19:56] VITALS: BP 102/58; PULSE 82; RESP 20
[2019-02-05] MEDS: HYDROCODONE/APAP (5/325) TAB PO PRN (21:20)
[2019-02-06 02:22] VITALS: BP 98/56; PULSE 84; RESP 20
[2019-02-06] MEDS: KETOROLAC 30 MG INJ IV SCH ×4 (04:31→23:07)
[2019-02-06] MEDS: LEVOTHYROXINE 100 MCG TAB PO SCH (06:10)
[2019-02-06] MEDS: METOCLOPRAMIDE 10 MG TAB PO SCH ×4 (06:10→23:08)
[2019-02-06] MEDS: PANTOPRAZOLE (EC) 40 MG TAB PO SCH (06:10)
[2019-02-06] MEDS: CEPHALEXIN 500 MG CAP PO SCH ×4 (06:10→23:07)
[2019-02-06 07:26] VITALS: BP_SYST 101; BP_SYST 109; BP_DIAS 60; PULSE 76; RESP 18
[2019-02-06] MEDS: LORATADINE 10 MG TAB PO SCH (08:49)
[2019-02-06] MEDS: ENOXAPARIN 30 MG/0.3 ML SYG SC SCH ×2 (08:53→20:54)
--- NOTE | 2019-02-06 12:06 | PN ---
Date/Time of Note Date/Time of Note DATE: 02/06/19 TIME: 12:05 Assessment/Plan Lines/Catheters IV Catheter Type (from Nrsg): Peripheral IV Canales in Place (from Nrsg): No Subjective 24 Hr Interval Summary Afebrile Feeling okay Toradol works well for her Passing gases Incision healing good Encouraged ambulation Feeding: advancing diet Pain Control: mild Detailed Summary Eyes: no complaints ENT: no complaints Respiratory: no complaints Cardiovascular: no complaints Gastrointestinal: no complaints Genitourinary: no complaints Musculoskeletal: no complaints Skin: no complaints Neurologic: no complaints Endocrine: no complaints Lymphatic: no complaints Psychological: no complaints, nl mood/affect Immunologic: no complaints Exam/Review of Systems Vital Signs Vitals Vital Signs Date Temp Pulse Resp B/P (MAP) Pulse Ox O2 O2 Flow FiO2 Time Delivery Rate 02/06/19 98.1 76 18 109/60 92 Room Air 07:26 (76) 02/05/19 2.0 08:00 Intake and Output 02/05/19 02/05/19 02/06/19 1515:00 23:00 07:00 IntakeIntake Total 125 ml 600 ml OutputOutput Total 1400 ml 300 ml 800 ml BalanceBalance -1275 ml 300 ml -800 ml Exam Constitutional: alert, oriented, well developed Psych: no complaints, nl mood/affect Head: normocephalic, atraumatic Eyes: nl conjunctiva, EOMI, nl lids, nl sclera ENMT: nl external ears & nose, nl lips & teeth, nl nasal mucosa & septum, mucosa pink and moist Neck: supple, non-tender Respiratory: clear to auscultation, normal air movement Cardiovascular: regular rate and rhythm, nl pulses Gastrointestinal: soft, nl liver, spleen, non-tender Musculoskeletal: nl extremities to inspection, nl gait and stance Extremities: normal pulses Neurological: CRYSTAL MOUNTER II-XII intact, nl mental status, nl speech, nl strength Skin: nl turgor, rash or lesions Lymph: nl lymph nodes Results Result Diagram: 02/06/19 0443 02/05/19 0433 FRANCOIS BUSBY MD February 06, 2019 12:06
[2019-02-06] MEDS ORDERED: BISACODYL (EC) 5 MG TAB PO ONE (12:30)
[2019-02-06 14:00] VITALS: BP 110/58; PULSE 78; RESP 18
[2019-02-06 20:00] VITALS: BP 109/56; PULSE 79; RESP 18
[2019-02-07 02:11] VITALS: BP 114/69; PULSE 82; RESP 18
[2019-02-07] MEDS: KETOROLAC 30 MG INJ IV SCH ×3 (04:37→17:32)
[2019-02-07] MEDS: CEPHALEXIN 500 MG CAP PO SCH ×3 (05:00→17:32)
[2019-02-07] MEDS: PANTOPRAZOLE (EC) 40 MG TAB PO SCH (05:00)
[2019-02-07] MEDS: LEVOTHYROXINE 100 MCG TAB PO SCH (06:08)
[2019-02-07] MEDS: METOCLOPRAMIDE 10 MG TAB PO SCH ×3 (06:08→17:32)
--- NOTE | 2019-02-07 08:21 | DS ---
Date/Time of Note Date/Time of Note DATE: 02/07/19 TIME: 08:16 Discharge Summary Admission/Discharge Info Admit Date/Time February 04, 2019 at 05:25 Discharge Date/Time February 07, 2019 Discharge Diagnosis Total abdominal hysterectomy bilateral salpingo-oophorectomy extensive lysis of adhesions due to intractable pelvic and back pain Bilateral large serous cystadenoma of both ovaries. Uterine adenomyosis Patient Condition: Good Procedures EUNICE/BSO extensive lysis of adhesions Hx of Present Illness 59 years old female multigravida who had been suffering from fibroid uterus abnormal bleeding intractable pelvic pain and back pain even after menopause. The findings and ultrasound were of very large bilateral complex masses and an early fibroid uterus. Surgery was considered due to the intractability of her pain Hospital Course She underwent the procedure offered to her without major complications, she had been placed on prophylactic antibiotics due to a leukocytosis of 17,000. On the first of surgery. The patient was ambulatory afebrile she had normalized leukocytes after she is was started on Keflex by mouth. The incision was healing very well. She has been tolerating diet voiding well and passing gases. Her pain has been controlled with Toradol and p.o. meds. She is stable to go home today Instructions were given to what to do and not to do at home and to see me in the office if there is any emergency and how to reach me as an emergency and or see me in 1 week Home Meds Reported Medications Omeprazole* (Omeprazole*) 20 Mg Capsule.dr, 20 MG PO DAILY, #30 CAP 02/04/19 Loratadine* (Loratadine*) 10 Mg Tablet, 10 MG PO DAILY, #30 TAB 02/04/19 Ergocalciferol (Vitamin D2) (VITAMIN D2) 2,000 Unit Tablet, 2000 UNIT PO DAILY, TAB 02/04/19 Levothyroxine Sodium* (Levoxyl*) 200 Mcg Tablet, 200 MCG PO BEFORE BREAKFAST, #30 TAB 02/04/19 Meloxicam* (Mobic*) 15 Mg Tablet, 15 MG PO DAILY, #30 TAB 02/04/19 Discontinued Reported Medications Cholecalciferol* (Vitamin D3*) 1,000 Unit Tablet, 1000 UNIT PO DAILY, TAB 01/31/17 Loratadine* (Loratadine*) 10 Mg Tablet, 10 MG PO QHS, #30 TAB 01/31/17 Meloxicam* (Mobic*) 15 Mg Tablet, 15 MG PO DAILY PRN for PAIN, #30 TAB 01/31/17 Docusate Sodium* (Doc-Q-Lace*) 100 Mg Capsule, 100 MG PO BID PRN for CONSTIPATION, CAP 01/31/17 Discontinued Scripts Ibuprofen* (Motrin*) 600 Mg Tab, 600 MG PO Q6H PRN for PAIN AND OR ELEVATED TEMP, #30 TAB Prov:RENE JOHNSON NP 05/24/18 Cyclobenzaprine Hcl* (Cyclobenzaprine Hcl*) 10 Mg Tablet, 10 MG PO TID, #15 TAB Prov:RENE JOHNSON NP 05/24/18 Hydrocodone/Acetaminophen ([place] 10-325 Tablet) 1 Each Tablet, 1 TAB PO Q6H PRN for SEVERE PAIN LEVEL 7-10, #7 TAB Prov:RENE JOHNSON NP 05/24/18 Hydrocodone Bit-Acetaminophen (Hydrocodone Bit-APAP) 5-325MG Tablet, 1 TAB PO Q6H PRN for PAIN LEVEL 6-10, #50 TAB Prov:MICHAEL GONSALEZ 06/29/17 Primary Care Provider Not On Staff Doctor Time spent on discharge: < 30 minutes Pending Labs Pathology reported benign bilateral ovarian serous adenoma. The uterus was also benign with adenomyosis FRANCOIS BUSBY MD February 07, 2019 08:21
[2019-02-07] MEDS: LORATADINE 10 MG TAB PO SCH (08:55)
[2019-02-07 08:57] VITALS: BP 123/58; PULSE 83; RESP 18
--- NOTE | 2019-02-07 09:46 | PD.PPDC ---
MATERIAL SPECIALIST Discharge Instruction Condition [id number] Patient Condition: Ohzod9k Good Diet [id number] Diet: Fuamm3i Resume Regular Diet Activity/Restrictions [id number] Activity: [id number] Normal Activity May Shower [id number] Restrictions: [id number] No Exercising No Lifting No Driving No Sexual Activity Nothing in the Vagina No [place] No Tampons, douche Wound/Drain Care Instructions [id number] Wound/Drain Care Instructions: [id number] Wash with soap and water Keep clean and dry Follow-up Follow-up with Physician: 1, Week/Weeks Return to clinic for [id number] FLANGING ROLL OPERATOR Instructions: Pypeb4a Fever greater than 101 Chills Worsening abdominal pain Excessive Vaginal Bleeding More than 2 pads per hour Unable to tolerate diet [id number] Surgical Instructions: [id number] Incisional Drainage Incisional Redness FRANCOIS BUSBY MD February 07, 2019 09:46
[2019-02-07 14:00] VITALS: BP 123/70; PULSE 71; RESP 18
[2019-02-07] MEDS: HYDROCODONE/APAP (5/325) TAB PO PRN (17:38)
== END 2019-02-07 19:15 | disposition home or self-care (01) | DRG 743 ==
LOC: REC 05:25 → MS1 12:03
PROVIDERS: ADMIT Obstetrics & Gynecology; ATTEND Obstetrics & Gynecology
PROC: 0UT70ZZ Resection of Bilateral Fallopian Tubes, Open Approach (ICD-10-PCS; 2019-02-04)
PROC: 0UT20ZZ Resection of Bilateral Ovaries, Open Approach (ICD-10-PCS; 2019-02-04)
PROC: 0UT90ZZ Resection of Uterus, Open Approach (ICD-10-PCS; principal; 2019-02-04 07:30)
DX: D25.9 Leiomyoma of uterus, unspecified (principal); N80.1 Endometriosis of ovary; Z78.0 Asymptomatic menopausal state; G89.29 Other chronic pain; E89.0 Postprocedural hypothyroidism; D27.1 Benign neoplasm of left ovary; D27.0 Benign neoplasm of right ovary; Z85.850 Personal history of malignant neoplasm of thyroid; M54.9 Dorsalgia, unspecified
CPT/HCPCS: 80051; 82565; 84520; 85025; 86850; 86900; 86901; 86920; 87086; 88305; 93005; J0690; J1100; J1170; J1650; J1885; J2250; J2274; J2405; J2710; J3010; J7120